=== PATIENT | female | born 1955 | race Two or more races ===

== ENCOUNTER 2017-10-02 11:58 | Day surgery (SDC) | payer OTHER ==
[2017-10-02] MEDS ORDERED: MIDAZOLAM 1 MG/ML 2 ML INJ ×3 (14:12→14:13)
[2017-10-02] MEDS ORDERED: FENTAnyl 50 MCG/ML VIAL ×2 (14:12)
== END 2017-10-02 16:14 | disposition home or self-care (01) ==
LOC: GIL 11:58
DX: K63.89 Other specified diseases of intestine (principal); Z86.010 Personal history of colon polyps; E78.00 Pure hypercholesterolemia, unspecified; I10 Essential (primary) hypertension
CPT/HCPCS: 45378